=== PATIENT | female | born 1995 | race Caucasian/White ===

== ENCOUNTER 2017-08-25 01:56 | Emergency (ER) | payer OTHER, SELFPAY ==
--- NOTE | 2017-08-25 07:57 | RAD ---
LUMBAR SPINE TWO VIEWS: History: Low back pain. FINDINGS/IMPRESSION: No compression fracture is seen. There has been interval anterolisthesis of L5 over S1. Possibility o f pars defects at L5 should be considered. Oblique images would be helpful. POS: HAJA
== END 2017-08-25 04:00 | disposition home or self-care (01) ==
LOC: ERS 01:56
DX: L03.312 Cellulitis of back [any part except buttock and flank] (principal); F32.9 Major depressive disorder, single episode, unspecified; Z79.899 Other long term (current) drug therapy
CPT/HCPCS: 72100

== ENCOUNTER 2017-11-29 00:02 | Emergency (ER) | payer SELFPAY | END 2017-11-29 00:55 | disposition home or self-care (01) | LOC: ERS 00:02 | DX: B02.9 Zoster without complications (principal); F32.9 Major depressive disorder, single episode, unspecified | CPT/HCPCS: 99282 ==

== ENCOUNTER 2018-03-28 01:41 | Emergency (ER) | payer SELFPAY ==
[2018-03-28] MEDS ORDERED: Bacitracin Zinc 1 Packet ONE (02:31)
== END 2018-03-28 02:37 | disposition home or self-care (01) ==
LOC: ERS 01:41
DX: T17.1XXA Foreign body in nostril, initial encounter (principal); J34.0 Abscess, furuncle and carbuncle of nose; W26.8XXA Contact with other sharp object(s), not elsewhere classified, initial encounter
CPT/HCPCS: 99282

== ENCOUNTER 2019-03-10 09:00 | Emergency (ER) | payer SELFPAY | END 2019-03-10 10:23 | disposition home or self-care (01) | LOC: ERS 09:00 | DX: M54.5 Low back pain (principal); F32.9 Major depressive disorder, single episode, unspecified; Z79.899 Other long term (current) drug therapy | CPT/HCPCS: 99281 ==

== ENCOUNTER 2019-08-12 21:55 | Emergency (ER) | payer SELFPAY ==
[2019-08-12 22:49] LABS: #Basophils 0.1 thou/uL (0.0-0.2); #Eosinphils 0.1 thou/uL (0.0-0.7); #Lymphocytes 2.3 thou/uL (1.20-3.40); #Monocytes 0.5 thou/uL (0.11-0.59); #Neutrophils 5.8 thou/uL (1.40-6.50); %Basophils 0.6 % (0.0-1.0); %Eosinophils 1.2 % (0.0-10.0); %Lymphocytes 26.5 % (21.0-51.0); %Monocytes 5.4 % (0.0-10.0); %Neutrophils 66.3 % (42.0-75.0); Hemoglobin 13.2 g/dL (12.0-16.0); Mean Corpuscular HGB CONC 32.7 g/dL (32.0-36.0); Mean Corpuscular Hemoglobin 28.4 pg (27.0-31.0); Mean Corpuscular Volume 87.1 fL (78.0-98.0); Mean Platelet Volume 6.7 fL (7.4-10.4); Platelet Count 269 thou/uL (130-400); RBC Distribution Width 12.7 % (11.5-14.5); Red Blood Cell (RBC) Count 4.63 mill/uL (4.20-5.40); White Blood Cell (WBC) Count 8.7 thou/uL (4.8-10.8)
--- NOTE | 2019-08-12 23:32 | ULT ---
ULTRASOUND TRANSVAGINAL DOPPLER DUPLEX: DATE: 08/12/2019 10:56 PM HISTORY: First trimester vaginal bleeding. 23-year-old female. TECHNIQUE: endovaginal transducer used to visualize intrapelvic contents with grayscale, color-flow, and spectra l analysis. FINDINGS: New uterine fundus, intrauterine gestational sac: 1.1 x 0.8 x 0.6 cm. Estimated gestational age 5 weeks 4 days. Yolk sac visualized. No embryonic pole identified. Small amount of free fluid in cul-de-sac. Right ovary normal in size, contains 2 x 1.5 x 1 cm corpus luteal cyst, and has blood flow by Doppler . Left ovary not identified. IMPRESSION: 1) intrauterine gestational sac with yolk sac but nonvisualization of embryonic pole. 2) recommend follow-up transvaginal ultrasound in 7-10 days.
== END 2019-08-12 23:52 | disposition home or self-care (01) ==
LOC: ERS 21:55
DX: O20.9 Hemorrhage in early pregnancy, unspecified (principal); O99.341 Other mental disorders complicating pregnancy, first trimester; F41.9 Anxiety disorder, unspecified; F32.9 Major depressive disorder, single episode, unspecified; Z3A.01 Less than 8 weeks gestation of pregnancy
CPT/HCPCS: 36415; 76856; 84702; 85025; 86900; 86901

== ENCOUNTER 2019-08-17 18:15 | Emergency (ER) | payer MEDICAID, SELFPAY ==
[2019-08-17 19:49] LABS: #Eosinphils 0.1 thou/uL (0.0-0.7); #Lymphocytes 2.2 thou/uL (1.20-3.40); #Monocytes 0.4 thou/uL (0.11-0.59); #Neutrophils 4.8 thou/uL (1.40-6.50); %Basophils 0.6 % (0.0-1.0); %Eosinophils 1.2 % (0.0-10.0); %Lymphocytes 29.3 % (21.0-51.0); %Neutrophils 63.9 % (42.0-75.0); Hemoglobin 14.1 g/dL (12.0-16.0); Mean Corpuscular HGB CONC 32.7 g/dL (32.0-36.0); Mean Corpuscular Hemoglobin 28.8 pg (27.0-31.0); Mean Corpuscular Volume 88.1 fL (78.0-98.0); Mean Platelet Volume 6.9 fL (7.4-10.4); Platelet Count 295 thou/uL (130-400); RBC Distribution Width 12.7 % (11.5-14.5); White Blood Cell (WBC) Count 7.5 thou/uL (4.8-10.8)
--- NOTE | 2019-08-17 22:31 | ULT ---
Exam: Transabdominal and endovaginal pelvic ultrasound HISTORY:Pelvic cramping. Heavy bleeding. Beta HCG 1008 COMPARISON:08/12/2019 TECHNIQUE: Transabdominal and endovaginal imaging of the pelvis is performed. Ovaries are interrogate d with grayscale, color flow, Doppler imaging and spectral wave form analysis FINDINGS: Uterus: No myometrial masses. Uterus measurin.2 x 8.6 x 4.2 cm. Endometrium: Previously noted gestational sac, yolk sac are not appreciated in the current exam. Endometrium diameter: 1 cm. . Free fluid: Free fluid in the cul-de-sac Right ovary: Irregular anechoic focus in the right adnexa measuring 1.6 x 1.3 x 0.7 cm. No significan t peripheral blood flow. Involuting corpus luteal cyst is favored. Right ovary measurement: 3.2 x 4.1 x 2.6 cm Left ovary: Poorly defined left ovary. Grossly unremarkable echotexture. Left ovary measurements: Probable left ovary measures 1.4 x 1.6 x 1.6 cm Ovarian Doppler: There is vascular flow to the left and right ovary. IMPRESSION: Previously noted gestational sac and yolk sac are not appreciated on the current exam. Endometrium is thickened. Findings may represent a missed spontaneous . Follow-up ultrasound and serial beta HCGs are recommended. Transcribed Date/Time: 08/17/2019 10:34 PM
== END 2019-08-17 23:05 | disposition home or self-care (01) ==
LOC: ERS 18:15
DX: O03.9 Complete or unspecified spontaneous abortion without complication (principal); F41.9 Anxiety disorder, unspecified; F32.9 Major depressive disorder, single episode, unspecified
CPT/HCPCS: 36415; 76856; 84702; 85025

== ENCOUNTER 2020-06-19 14:29 | Emergency (ER) | payer MEDICAID, OTHER ==
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
[2020-06-19] MEDS ORDERED: hydrALAZINE 20 MG/ML VIAL SLOW IVP PRN (15:22)
--- NOTE | 2020-06-19 20:03 | PDOC.BPN ---
- Brief Progress Note Encounter Date: 06/19/20 Encounter Time: 20:00 BPP 03/03. CAITLYN 15. Posterior placenta on US. Reviewed FHR monitoring - wnl and no contractions on toco. Dispo: DC to home with return precautions. Follow up with [facility] - Dr. Don Bradford within the next [address] Cheng. Ivet Dolan, , PGY-1
== END 2020-06-19 14:57 | disposition home or self-care (01) ==
LOC: ERS 14:29
DX: O99.891 Other specified diseases and conditions complicating pregnancy (principal); Z3A.26 26 weeks gestation of pregnancy; O99.342 Other mental disorders complicating pregnancy, second trimester; F32.9 Major depressive disorder, single episode, unspecified; F41.9 Anxiety disorder, unspecified; O24.419 Gestational diabetes mellitus in pregnancy, unspecified control; V89.2XXA Person injured in unspecified motor-vehicle accident, traffic, initial encounter
CPT/HCPCS: 99284

== ENCOUNTER 2020-06-19 14:52 | Day surgery (SDC) | payer OTHER ==
[2020-06-19 15:31] VITALS: BP 121/68; TEMP 97.9
[2020-06-19 15:36] VITALS: BMI 43.2
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
== END 2020-06-19 20:33 | disposition home or self-care (01) ==
LOC: L&D/OP 14:52
PROVIDERS: ATTEND Family Medicine
DX: Z04.1 Encounter for examination and observation following transport accident (principal); Z3A.00 Weeks of gestation of pregnancy not specified
CPT/HCPCS: 76819; 99282

== ENCOUNTER 2020-07-22 19:21 | Day surgery (SDC) | payer OTHER ==
[2020-07-22] MEDS ORDERED: hydrALAZINE 20 MG/ML VIAL SLOW IVP PRN (19:57)
--- NOTE | 2020-07-22 19:58 | PDOC.FPROB ---
FMR OB H&P: HPI - History of Present Illness Chief Complaint: Contractions History of Present Illness: 24 year old at 31.0wk who presents to L&D triage with complains of bilateral flank pain extending to LLQ and RLL respectively. Pain started at 1200 today and has waxed and waned since. Patient describes the pain as mild. She says the pain feels different than [place] contractions and labor contractions experienced in previous . Reports active FM every hour. + white vaginal discharge. Was diagnosed with Tatum vulvovaginitis on 07/16 but has not started using clotrimazole cream yet. Denies LOF, vaginal bleeding, vaginal pressure or cramping. Primary Care Physician: Amena Weathers FMR OB H&P: Current - Care : 3 Para: 1011 Gestational age: 31.0wk Due date: 09/23/20 Dating Criteria: LMP c/w 1T US Course/Complications: Recent ddx of A1GDM. DDx of tatum vulvovaginitis on 07/16/20 on clotrimazole cream. MDD/BOOGIE on buspirone. - OB Labs Blood type: A RH: positive Antibody Screen: negative HIV: negative RPR: negative HepBsAg: negative Rubella: immune Gonorrhea: negative Chlamydia: negative Pap Smear: 06/14, normal 1 hour gtt: 213 GBS: unknown H&H: 11.33.6 Platelets: 314 Additional labs: 2 hour GTT 181 - Anatomy Survey Anatomy survey: 05/30/20 at 23.3wk, Hadlock 82%, posterior placenta FMR OB H&P: History - Past Medical History PMH: Obesity, MDD, BOOGIE - OB History OB History: SAB on 08/17/19 at 6-8 wk. in 08/12 at 39 wk. 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 Menstruation every 28 days. - Surgical History Sx History: None - Social History Social History: Denies tobacco use, ETOH use and drug use. - Family History Family History: Mother - HLD, HTN, CAD Maternal grandmother - HLD, HTN, CAD FMR OB H&P: Medications - Current Home Medications: Medication Instructions Recorded Confirmed Type Vitamin 1 tablet PO DAILY 06/19/20 06/19/20 History Allergies/Adverse Reactions: Allergies Allergy/AdvReac Type Severity Reaction Status Date / Time Sulfa (Sulfonamide Allergy Hives Verified 06/19/20 15:16 Antibiotics) FMR OB H&P: ROS - Review of Systems General: denies: fever/chills, fatigue Eyes: denies: vision changes, double vision ENT: denies: nasal congestion, rhinorrhea Cardiovascular: denies: chest pain, palpitation, edema Gastrointestinal: denies: abdominal pain, nausea, vomiting, diarrhea, constipation Genitourinary (Female): reports: vaginal discharge (white). denies: dysuria, hematuria, vaginal pain, vaginal bleeding, contractions, vaginal pressure Musculoskeletal: denies: pain, stiffness Neurologic: denies: syncope, weakness Psychological: denies: depression, anxiety FMR OB H&P: Vital Signs - Maternal Vital signs: BP 128/60, HR 91, RR 18, Pulse Ox 95%, Temp 98.4F, Weight 136kg - Heart Tones Baseline: 140 Variability: moderate Acceleration: present Deceleration: absent [place] contractions every: 0 FMR OB H&P: Physical Exam - Physical Exam General: NAD, awake, alert and oriented HEENT: normocephalic and atraumatic, PERRLA, no scleral icterus, normal nasal mucosa Neck: FROM Chest: non-tender to palpation Heart: RRR, normal S1/S2, no edema General: CTAB, no respiratory distress, good air movement Abdomen: gravid, non-tender, bowel sound present Musculoskeletal: FROM in all four extremities, no misalignment/asymmetry Neurological: no focal deficit Deviation from normal: A&Ox4 Skin: capillary refill <2 seconds Lymphatic: no unusual bruising or bleeding Psychiatric: normal mood and affect FMR OB H&P: A/P Disposition: 24 year old at 31.0wk who presents with complaints of flank pain bilateral Round Ligament Pain -Symptoms not consistent with contractions -Reactive strip without toco contractions present [place] IUP -Currently 31.0wk by LMP/1T US -Anatomy scan at 23.3wk showed Hadlock 82% -Continue PNV daily Tatum vulvovaginitis -DDx in clinic on 07/16/20 -Instructed to start clotrimazole cream Obesity -BMI 43 -Plan for mIOL at 39 weeks A1GDM -Recent diagnosis in clinic with 1hr GTT 213, 2h GTT 181 -Currently managed with diet MDD BOOGIE -Recently weaned off sertraline -Continue buspirone 7.5mg BID Constipation -Not currently on medication Dispo: Stable to discharge home. Will f/u in clinic next week with Dr. Don Bradford. Labor Precautions given. Discussion: Date/Time: 07/22/201957 This H&P was discussed with [] and [] who agree with the above documentation and plan. Addendum - Attending - Attending Attestation Date/Time: 07/23/20822 I personally evaluated the patient and discussed the management with Dr. Pierson and Dr. Hughes. I agree with the History, Examination, Assessment and Plan documented above with any addition or exceptions noted below.
[2020-07-22 20:16] VITALS: BMI 43.7
== END 2020-07-22 21:00 | disposition home or self-care (01) ==
LOC: L&D/OP 19:21
PROVIDERS: ATTEND Family Medicine
DX: O99.891 Other specified diseases and conditions complicating pregnancy (principal); R10.31 Right lower quadrant pain; R10.32 Left lower quadrant pain; O98.813 Other maternal infectious and parasitic diseases complicating pregnancy, third trimester; B37.3 Candidiasis of vulva and vagina; O24.410 Gestational diabetes mellitus in pregnancy, diet controlled; O99.343 Other mental disorders complicating pregnancy, third trimester; F41.1 Generalized anxiety disorder; F32.9 Major depressive disorder, single episode, unspecified; O99.213 Obesity complicating pregnancy, third trimester; E66.9 Obesity, unspecified; O99.613 Diseases of the digestive system complicating pregnancy, third trimester; K59.00 Constipation, unspecified; Z79.899 Other long term (current) drug therapy; Z3A.31 31 weeks gestation of pregnancy; Z88.2 Allergy status to sulfonamides
CPT/HCPCS: 99282

== ENCOUNTER 2020-09-22 09:34 | Emergency (ER) | payer OTHER ==
[2020-09-22] MEDS ORDERED: Morphine 4 MG/ML VIAL ONE (10:24)
[2020-09-22] MEDS ORDERED: Ketorolac Tromethamine 30 MG/ML VIAL ONE (10:24)
[2020-09-22] MEDS ORDERED: Piperacillin/Tazobactam 4.5 GM VIAL ONE (10:24)
[2020-09-22] MEDS ORDERED: Ondansetron PF 4 MG/2 ML Vial ONE (10:24)
--- NOTE | 2020-09-22 10:29 | CT ---
CT HEAD WITHOUT IV CONTRAST COMPARISON: None HISTORY: Headache. 2 weeks . TECHNIQUE: Axial CT imaging at 5 mm intervals from vertex through skull base without contrast FINDINGS: There is no evidence of an acute infarction, hemorrhage, mass effect, or midline shift. The ventricul ar system is normal in size, shape, and position. Skull base has a normal CT appearance. Visualized paranasal sinuses are clear. Osseous structures appear intact. IMPRESSION: 1. No acute intracranial abnormality demonstrated.
[2020-09-22 10:50] LABS: #Eosinphils 0.1 thou/uL (0.0-0.7); #Lymphocytes 0.7 thou/uL (1.20-3.40); #Monocytes 0.4 thou/uL (0.11-0.59); #Neutrophils 8.2 thou/uL (1.40-6.50); %Basophils 0.3 % (0.0-1.0); %Eosinophils 0.7 % (0.0-10.0); %Lymphocytes 7.7 % (21.0-51.0); %Monocytes 4.4 % (0.0-10.0); %Neutrophils 86.9 % (42.0-75.0); Hemoglobin 12.8 g/dL (12.0-16.0); Mean Corpuscular HGB CONC 32.1 g/dL (32.0-36.0); Mean Corpuscular Hemoglobin 27.3 pg (27.0-31.0); Platelet Count 300 thou/uL (130-400); RBC Distribution Width 13.6 % (11.5-14.5); White Blood Cell (WBC) Count 9.4 thou/uL (4.8-10.8)
[2020-09-22 11:11] LABS: ALT (SGPT) 32 U/L (8-55); AST (SGOT) 27 U/L (5-34); Alkaline Phosphatase 101 U/L (40-110); Anion Gap 14 mmol/L (10-20); BUN (Urea Nitrogen) 14 mg/dL (7.0-18.7); Bilirubin, Total 0.9 mg/dL (0.2-1.2); Calc. Creatinine Clearance 0 mL/min (70-130); Calcium 9.1 mg/dL (7.8-10.44); Carbon Dioxide 23 mmol/L (22-29); Chloride 107 mmol/L (98-107); Globulin 3.4 g/dL (2.4-3.5); Glucose 110 mg/dL (70-105); Lipase 8 U/L (8-78); Potassium 3.9 mmol/L (3.5-5.1); Protein, Total 7.4 g/dL (6.0-8.3); Sodium 140 mmol/L (136-145)
--- NOTE | 2020-09-22 11:15 | ULT ---
EXAM: Transabdominal pelvic ultrasound with Doppler PROVIDED CLINICAL HISTORY: Fever, 2 weeks , vaginal discharge COMPARISON: None FINDINGS: There is enlargement of the uterus typical for state. There is a small amount of nonspecif ic endometrial fluid. The ovaries appear sonographically unremarkable. Color Doppler and spectral analysis of the ovarian waveforms demonstrates normal flow bilaterally. There is no evidence for sign ificant free pelvic fluid. IMPRESSION: Small amount of nonspecific endometrial fluid.
[2020-09-22] MEDS ORDERED: VANCOMYCIN 2 GRAM/400 ML BAG 2 GM in Premix Bag 1 BAG IVPB SCH (11:30)
[2020-09-22 12:50] LABS: SARS-CoV-2 NAA Rapid Test Not Detected (NotDetected)
[2020-09-22 13:03] LABS: Bilirubin Negative (Negative); Blood, Urine Negative (Negative); Clarity Clear (Clear); Glucose, Urine (Dipstick) Normal (Negative); Ketone, Urine Negative (Negative); Leukocyte 500 Leu/uL (Negative); Nitrite Negative (Negative); Protein, Urine (Dipstick) Negative (Neg-Trace); RBC/HPF 0-3 HPF (0-3); Specific Gravity, Urine 1.012 (1.002-1.036); Squamous Epithelial 0-3 HPF (0-3); Urobilinogen Normal mg/dL (Less than 2)
[2020-09-22 13:04] LABS: Bacteria/HPF 1+ HPF (None Seen)
== END 2020-09-22 14:50 | disposition short-term general hospital (02) ==
LOC: ERS 09:34
DX: O86.12 Endometritis following delivery (principal); O24.419 Gestational diabetes mellitus in pregnancy, unspecified control
CPT/HCPCS: 0240U; 36415; 70450; 76856; 80053; 81003; 81015; 83605; 83690; 84484; 85025; 87040; 87086; 87149; 93005; 93976; 96365; 96367; 96368; 96375; J1885; J2270; J2405; J2543; J3370

== ENCOUNTER 2021-01-23 09:57 | Emergency (ER) | payer OTHER ==
[2021-01-23] MEDS ORDERED: Ketorolac Tromethamine 30 MG/ML VIAL ONE (12:02)
== END 2021-01-23 12:26 | disposition home or self-care (01) ==
LOC: ERS 09:57
DX: M25.572 Pain in left ankle and joints of left foot (principal); W19.XXXA Unspecified fall, initial encounter
CPT/HCPCS: 96372; J1885

== ENCOUNTER 2023-08-30 20:24 | Emergency (ER) | payer OTHER ==
[2023-08-30] MEDS ORDERED: Ibuprofen 800 MG TAB ONE (20:44)
[2023-08-30 21:23] LABS: Bacteria/HPF None Seen HPF (None Seen); Bilirubin Negative (Negative); Blood, Urine Trace (Negative); CAUTI Indications for Culture Fever or rigors; Clarity Clear (Clear); Glucose, Urine (Dipstick) Normal (Negative); Ketone, Urine Negative (Negative); Leukocyte Negative Leu/uL (Negative); Nitrite Negative (Negative); Protein, Urine (Dipstick) Negative (Neg-Trace); RBC/HPF 0-3 HPF (0-3); Specific Gravity, Urine 1.013 (1.002-1.036); Squamous Epithelial 0-3 HPF (0-3); Urobilinogen Normal mg/dL (Less than 2); WBC/HPF 0-3 HPF (0-3); pH, Urine 7.5 (5.0-9.0)
[2023-08-30 21:26] LABS: Urine Culture Reflex No No
[2023-08-30 21:35] LABS: SARS-CoV-2 NAA Rapid Test Not Detected (NotDetected)
== END 2023-08-30 22:00 | disposition home or self-care (01) ==
LOC: ERS 20:24
DX: J10.1 Influenza due to other identified influenza virus with other respiratory manifestations (principal); F17.290 Nicotine dependence, other tobacco product, uncomplicated; Z55.6 Problems related to health literacy
CPT/HCPCS: 81001; 99284